=== PATIENT | female | born 1990 | race Caucasian/White ===

== ENCOUNTER 2025-03-22 05:46 | Inpatient (IN) ==
--- NOTE | 2025-03-11 14:34 | Anesthesiology Consultation ---
Date of Service March 11, 2025 Assessment & Plan (1) Encounter for pre-operative examination: Chart Review Chart Review: charge entry initiated - Patient electing for due to dystocia in G4 during -Infectious Disease screening: Per PAT nursing assessment on 03/11/25. No known infectious disease contacts in past 10 days or current infectious disease symptoms. No recent travel outside the country. Cardiology Clinic note 01/26/25= "family history of congenital heart disease; specifically her daughter has Ebstein's anomaly and is s/p multiple surgeries... ECHO for current appears normal with no evidence of Ebstein's anomaly, major congenital heart disease, myocardial dysfunction, rhythm disturbances, pericardial effusion or other acute CV concerns... no contraindications for her to deliver at [facility]... pediatric cardiology can be consulted at any time... no need to follow her in the cardiology clinic at this time.. no need for empiric imaging or pediatric cardiology involvement... History Surgery Operation Date: 03/22/25 07:30 Proposed Procedures p Section (Delivery of Baby Through Abdominal Incision) - Kristie Madrid, Height/Weight Height: 5 ft 6 in Weight: 84.368 kg Allergies Allergy/AdvReac Type Severity Reaction Status Date / Time peanut Allergy Severe Anaphylaxis Verified 03/11/25 13:48 tree nut Allergy Severe Anaphylaxis Verified 03/11/25 13:48 eggplant Allergy Intermediate "mouth Verified 03/11/25 13:48 starts to get itchy" Medications Home Medications Medication Instructions Recorded Confirmed Last Taken aspirin 81 mg tablet,delayed 81 mg PO HS 10/20/24 03/11/25 Unknown release (Adult Low Dose Aspirin) docusate sodium 100 mg tablet 300 mg PO HS 03/11/25 03/11/25 Unknown (Stool Softener) vits no.133-ferrous 1 tab PO HS 03/11/25 03/11/25 Unknown fumarate 28 mg-folic acid 800 mcg tablet () Past Medical History Medical History (Updated 03/11/25 @ 14:27 by Maria Del Rosario Stuart PA-C) Chronic back pain History of anesthesia reaction after last cesearan section 2019--states her BP remained low for 2 days History of blood clots had superficial blood clot in lower extremity after 3rd ---reason for aspirin On anticoagulant therapy aspirin daily TMJ click no device Past Family History Family History Other Diabetes Hypertension No family history of adverse response to anesthesia Past Surgical History Surgical History (Updated 03/11/25 @ 14:33 by Maria Del Rosario Stuart PA-C) History of section with 2nd child (1st was ) 3rd and 4th babies were History of hip surgery right History of wisdom tooth extraction Social History Smoking Status: Never smoker Do You Dip or Chew Tobacco: No Hx Alcohol Use: No Hx Substance Use: No substance use type: does not use
--- NOTE | 2025-03-15 17:55 | History & Physical Report ---
Date of Service March 15, 2025 Assessment & Plan (1) History of section: Plan: Plans for repeat section. Reviewed consent in detail, questions answered. History of Present Illness Primary Care Provider: NO PCP 34yo with plans for repeat section. : 5 Full term: 4 Premature: 0 Total Number of Induced Abortions: 0 Total Number of Spontaneous Abortions: 0 Ectopics: 0 Multiple births: 0 Number of Living Children: 4 and Delivery Plans G1 - G2 - ( cardiac defect) G3 - G4 - , shoulder dystocia H/o x 1 - Opts for repeat c/s this as had dystocia in G4 C/S SCHEDULED FOR 03/22/[address] GOLDEN h/o superficial LE blood clot - Taking ASA - Refer to Hematology per pt request--agreed to just do asa h/o G2 with cardiac defect - echo--normal Allergies Allergy/AdvReac Type Severity Reaction Status Date / Time peanut Allergy Severe Anaphylaxis Verified 03/15/25 16:47 tree nut Allergy Severe Anaphylaxis Verified 03/15/25 16:47 eggplant Allergy Intermediate "mouth Verified 03/15/25 16:47 starts to get itchy" Home Medications Medication Instructions Recorded Confirmed Type aspirin 81 mg tablet,delayed 81 mg PO HS 10/20/24 03/15/25 History release (Adult Low Dose Aspirin) docusate sodium 100 mg tablet 300 mg PO HS 03/11/25 03/15/25 History (Stool Softener) vits no.133-ferrous 1 tab PO HS 03/11/25 03/15/25 History fumarate 28 mg-folic acid 800 mcg tablet () Patient History Medical History (Updated 03/11/25 @ 14:27 by Maria Del Rosario Stuart PA-C) History of anesthesia reaction after last cesearan section 2019--states her BP remained low for 2 days Chronic back pain History of blood clots had superficial blood clot in lower extremity after 3rd ---reason f or aspirin On anticoagulant therapy aspirin daily TMJ click no device Surgical History (Updated 03/11/25 @ 14:33 by Maria Del Rosario Stuart PA-C) History of wisdom tooth extraction History of section with 2nd child (1st was ) 3rd and 4th babies were History of hip surgery right Family History Other Diabetes Hypertension No family history of adverse response to anesthesia Social History (Updated 10/20/24 @ 11:08 by Madelin Barclay) Smoking Status: Never smoker Second Hand Exposure: No; Do You Dip or Chew Tobacco: No; Hx Alcohol Use: No Hx Substance Use: No Preferred Language: [place] Communication Ability: Effective Senior Solutions Architect Required: No Beliefs That Will Affect Care: None marital status: marital status details: Cristi (32) [phone] Current Living Situation: Spouse Current Living Situation Comment: lives with spouse, 4 daughters current occupational status: unemployed Feels Safe at Home: Yes Assistive Devices: None Review of Systems All systems reviewed & are unremarkable except as noted in HPI & below Physical Exam Constitutional: WD/WN, vitals as above Respiratory: normal respiratory effort, lungs clear to auscultation no respiratory distress Cardiovascular: Rate/Rhythm: regular rate and regular rhythm Gastrointestinal (Abdomen): Inspection/Auscultation: abdomen normal to inspection Percussion/Palpation: abdomen soft; abdomen nontender Gravid. No s/s chorio or abruption. Skin: no rashes, warm and dry Psychiatric: A+Ox3, euthymic affect Coding Level of Care Code None Diagnoses History of section Z98.891
[2025-03-22] MEDS ORDERED: SODIUM CHLORIDE 0.9% 100 ML IV PRN (06:22)
[2025-03-22] MEDS: LACTATED RINGER'S 1,000 ML IV SCH ×2 (06:25→09:17)
[2025-03-22] MEDS: ACETAMINOPHEN 500 MG TAB PO SCH (06:25)
[2025-03-22 06:27] LABS: Hematocrit (blood only) 39.7 % (37.0-47.0); Hemoglobin 12.8 g/dl (12.0-16.0); Immature Granulocytes # (auto) 0.33 K/uL (0.01-0.20); Immature Granulocytes % (auto) 3.2 %; Mean Corpuscular Hemoglobin 30.2 pg (25.0-34.0); Mean Corpuscular Volume 93.6 fL (80.0-100.0); Platelet Count 181 K/uL (130-400); RDW Standard Deviation 45.2 fL (36.4-46.3); Red Blood Count 4.24 M/uL (4.20-5.40); White Blood Count 10.46 K/ul (4.8-10.8)
[2025-03-22] MEDS ORDERED: OXYTOCIN 10 UNITS/ML VIAL ONE (06:47)
[2025-03-22] MEDS ORDERED: ONDANSETRON INJ 2 MG/ML 2 ML VIAL ONE (06:47)
[2025-03-22] MEDS ORDERED: DEXAMETHASONE SOD INJ 4 MG/ML VIAL ONE ×2 (06:47→06:56)
[2025-03-22] MEDS ORDERED: MoRPHine SULFATE PF 1 MG/ML 10 ML AMP/VIAL ONE (06:47)
[2025-03-22] MEDS ORDERED: PHENYLEPHRINE HCL 25 MG/250 ML NSS IV ONE (06:47)
[2025-03-22] MEDS ORDERED: LACTATED RINGER'S 1,000 ML IV SCH (07:00)
[2025-03-22] MEDS ORDERED: LACTATED RINGER'S 500 ML IV PRN (07:14)
[2025-03-22] MEDS ORDERED: HYDROmorphone INJ 0.5 MG/0.5 ML SYR IV PRN (07:14)
[2025-03-22] MEDS ORDERED: NALBUPHINE HCL INJ 10 MG/ML AMP IV PRN (07:14)
[2025-03-22] MEDS ORDERED: NALOXONE HCL 0.4 MG/1 ML VIAL/CARP IV PRN (07:14)
[2025-03-22] MEDS ORDERED: ONDANSETRON INJ 2 MG/ML 2 ML VIAL IV PRN (07:14)
[2025-03-22] MEDS ORDERED: diphenhydrAMINE 50 MG/ML VIAL IV PRN (07:14)
[2025-03-22] MEDS ORDERED: NALOXONE HCL 0.08 MG in SYRINGE 1.8 ML IV PRN (07:14)
[2025-03-22] MEDS ORDERED: NALOXONE HCL 1 MG in SODIUM CHLORIDE 0.9% 1,000 ML IV PRN (07:14)
[2025-03-22] MEDS ORDERED: NO NARCOTICS OR SEDATIVES SCH (07:15)
[2025-03-22] MEDS ORDERED: DC INTRASPINAL MORPHINE SCH (07:15)
--- NOTE | 2025-03-22 07:24 | History & Physical Bridge Note ---
Date of Service March 22, 2025 History & Physical Bridge Note I have examined the patient, reviewed the History & Physical and in the interval since the performance of the History & Physical I have noted the following changes of clinical significance: no changes noted
[2025-03-22] MEDS: CITRIC ACID/SODIUM CITRATE 15 ML UDC PO SCH (07:26)
[2025-03-22] MEDS ORDERED: PHENYLEPHRINE 100MCG/ML 5ML SYR ONE (07:54)
[2025-03-22 08:21] LABS: Base Excess Cord Arterial Bld -0.1 mEq/L (-9-1.8); CO2 Cord Arterial Blood 60 mmHg (39.1-73.5); HCO3 Cord Arterial Blood 28 mmol/L (19.7-28.5); Oxygen Sat Cord Arterial Blood < 60.0 % (<60); PO2 Cord Arterial Blood < 20 mmHg (4.1-31.7); pH Cord Arterial Blood 7.28 (7.1-7.38)
[2025-03-22 08:23] LABS: Base Excess Cord Venous Blood -2.3 mEq/L (-7.7-1.9); Cord Venous Blood PO2 33 mmHg (14.1-43.3); O2 Saturation Cord Venous Bld 71.9 % (<68)
--- NOTE | 2025-03-22 08:48 | Operative Report ---
Post Operative Report Pre & Post Diagnosis Operation Date: 03/22/25 07:30 Pre-Op Diagnosis: History of section History of shoulder dystocia Desires repeat section Post-Op Diagnosis: History of section History of shoulder dystocia Desires repeat section I identified the patient and participated in the time-out.: Yes Procedure Operation Date: 03/22/25 07:30 Repeat low transverse section Surgeon Kristie Madrid DO Medical Anthropologist Zeeshan Mckeon MD Quantitative Blood Loss (QBL) 335 Findings Consistent with Post-Op Diagnosis Viable male , Apgars 8/9. Weight 8#4oz. Normal appearing uterus, tubes, ovaries. Specimens placenta, cord blood, cord gas Drains howell clear yellow Anesthesia Type Spinal Complications none Disposition Accompanied Patient To Recovery: Yes Disposition: L&D Indications 34yo @ 39 07/07, h/o x 1, h/o shoulder dystocia, desires repeat section Description of Procedure The patient was seen in her labor and delivery room, risks benefits and alternatives to surgery were reviewed. Informed consent obtained. Questions were answered. She was taken to the operating room, spinal anesthesia was administered. She was then prepared and draped in the usual sterile fashion in the supine position with a leftward tilt. Timeout was confirmed. A Pfannenstiel skin incision was made with a scalpel, and carried through to the underlying layer of fascia. Fascia was nicked at midline, and this incision was extended bilaterally. The superior aspect of the fascial incision was grasped with Master clamps x2, elevated off the underlying rectus abdominis muscles, and dissected sharply and bluntly. In similar fashion, the inferior aspect of the fascial incision was dissected. The rectus abdominis muscles were , and the peritoneum was entered bluntly digitally. This was extended bilaterally. The bladder flap was taken down carefully using Metzenbaum scissors. Using a new scalpel, a low transverse uterine incision was created. Clear amniotic fluid noted. The was delivered from a cephalic presentation. The head delivered, followed by shoulders and body. Spontaneous cry on the field. The cord was doubly clamped and cut, and the infant was handed off to the waiting yard warehouse worker. A segment was retained for cord gases. Cord blood was obtained. The placenta was delivered spontaneously intact. The uterus was exteriorized, and cleared of all clots and debris. The hysterotomy incision was reapproximated using 0 Vicryl in a running locked stitch. A second layer of the same suture was used to imbricate the incision. Posterior uterus was evaluated and normal. The uterus was returned to the abdomen, and gutters were cleared of clots and debris. Excellent hemostasis was observed. The fascial incision was reapproximated using 0 Vicryl in a running stitch. The subcutaneous tissue was irrigated, and reapproximated using 2-0 plain gut in a running stitch. The skin was reapproximated using 4-0 Vicryl in a running subcuticular stitch. Steri-Strips and a bandage were applied. The patient tolerated the procedure well, and will be taken to the recovery area in stable and good condition. I attest to the content of the Intraoperative Record and any orders documented therein. Any exceptions are noted below. OB Procedure Charges 28222
[2025-03-22] MEDS: OXYTOCIN 20 UNITS/LR 1,002 ML IV SCH (08:55)
--- NOTE | 2025-03-22 08:55 | Anesthesiology Progress Note ---
Date of Service March 22, 2025 Anesthesia Post Procedure Vital Signs Vital Signs: Temp Pulse Resp BP Pulse Ox O2 Del Method 03/22/25 08:52 76 92 03/22/25 08:49 76 100/58 L 99 03/22/25 07:07 Room Air 03/22/25 07:01 89 106/70 03/22/25 06:03 18 03/22/25 06:02 83 111/72 03/22/25 05:58 16 03/22/25 05:58 36.8 C 16 Transfer of Care Handoff Completed per policy Notes Mental Status: alert / awake / arousable and participated in evaluation Patient Amnestic to Procedure: Yes Nausea / Vomiting: adequately controlled Pain: adequately controlled Airway Patency, RR, SpO2: stable & adequate BP & HR: stable & adequate Hydration State: stable & adequate Anesthetic Complications: no major complications apparent and Pt Satisfied with anesthetic care
[2025-03-22] MEDS ORDERED: BENZOCAINE 20% SPRY 85 APPLN/85 GM CAN EXT PRN (08:56)
[2025-03-22] MEDS ORDERED: CALCIUM CARBONATE 500 MG CHEWABLE TAB PO PRN (08:56)
[2025-03-22] MEDS ORDERED: SENNA 8.6 MG TAB PO PRN (08:56)
[2025-03-22] MEDS ORDERED: MAGNESIUM HYDROXIDE SUSP 30 ML UDC PO PRN (08:56)
[2025-03-22] MEDS ORDERED: HYDROCORTISONE ACETATE 25 MG SUPP PR PRN (08:56)
[2025-03-22] MEDS ORDERED: PROMETHAZINE 12.5 MG/50.5 ML BAG IV PRN (08:56)
[2025-03-22] MEDS: DIPHTHER/TETAN/PERTUS Vaccine (Tdap, Adol/Adult) 0.5mL IM ONE (09:31)
[2025-03-22] MEDS: OXYTOCIN 20 UNITS/1002ML LR IV ONE (09:53)
[2025-03-22] MEDS: KETOROLAC 30 MG/ML VIAL IV SCH (09:56)
[2025-03-22] MEDS ORDERED: Nursing to Pharmacy Communication SCH (10:30)
[2025-03-22] MEDS: MoRPHine SULFATE 2 MG/ML CARP IV PRN (13:28)
[2025-03-22] MEDS: ACETAMINOPHEN 325 MG TAB PO SCH (21:09)
[2025-03-22] MEDS: SIMETHICONE 80 MG CHEW PO SCH (21:10)
[2025-03-22] MEDS: DOCUSATE SODIUM 100 MG CAP PO SCH (21:10)
[2025-03-23] MEDS ORDERED: diphenhydrAMINE Capsule 25 MG CAP PO PRN (01:14)
[2025-03-23] MEDS ORDERED: HYDROmorphone INJ 0.5 MG/0.5 ML SYR IV PRN (01:14)
[2025-03-23] MEDS ORDERED: diphenhydrAMINE 50 MG/ML VIAL IV PRN (01:14)
[2025-03-23] MEDS ORDERED: ONDANSETRON INJ 2 MG/ML 2 ML VIAL IV PRN (01:14)
--- NOTE | 2025-03-23 05:57 | Obstetrical Progress Note ---
Date of Service March 23, 2025 Assessment & Plan (1) examination following vaginal delivery: Plan 34 y/o POD 1 s/p repeat . Feels well today. Vital signs stable Continue post- care Encourage ambulation and Pain controlled with ibuprofen Hgb stable Anticipate home discharge tomorrow, follow-up with Dr. Madrid is 6 weeks. Admission and Anticipated Discharge Date Admission Date: March 22, 2025 Supervising Physician Co-Signing Physician Notes Resident Physician Supervision Note: I interviewed and examined the patient. Discussed with Dr. Jordan and agree with findings and plan as documented in the note. Any exceptions or clarifications are listed here: Doing well, pod #1. Routine care. Documented By: Luz Lin MD, FACOG Subjective 34 y/o POD 1 s/p repeat . Ambulation: ambulating normally ; some muscle soreness when getting OOB and ambulating Voiding: no voiding problems Passing Gas:: Yes Diet Tolerance:: regular diet Lochia:: Small Feeding Type:: breast Current Pain Level: minimal Resting comfortably this AM in NAD. Denies HALL, CP, SOB, N/V/D, LE pain/swelling. Physical Exam Physical Exam: General: patient resting comfortably, NAD, non-toxic in appearance, AA&O x 4, answers questions appropriately. Skin: warm, dry, intact HEENT: NC/AT, anicteric sclera, conjunctiva without injection, moist mucus membranes. Heart: +S1/S2, regular, no m/r/g Lungs: equal air entry bilaterally, no rales/rhonchi/wheezes Abd: +BS, soft, NT/ND, uterine fundus firm at umbilicus, caesarean incision C/D/I. Ext: warm, no clubbing/cyanosis or edema, SCDs on and running Neuro: nonfocal, patient AA&O x 4, speech intact, no facial droop, moving all extremities on command. Results & Data Vital Signs (Past 12 Hours) Vital Signs Temp Pulse Resp BP BP Pulse Ox O2 Del Method 03/23/25 03:15 36.7 C 78 16 93/58 L 95 Room Air 03/23/25 01:00 16 95 03/23/25 00:00 16 94 03/22/25 23:15 36.7 C 70 16 93/61 L 94 Room Air 03/22/25 23:00 16 94 03/22/25 22:55 18 95 03/22/25 22:20 16 94 03/22/25 21:20 18 03/22/25 20:20 18 96 03/22/25 19:20 16 96 03/22/25 19:20 Room Air 03/22/25 19:20 36.8 C 82 16 105/70 96 Room Air 03/22/25 18:00 16 100
[2025-03-23 06:23] LABS: Hematocrit (blood only) 35.7 % (37.0-47.0); Hemoglobin 11.5 g/dl (12.0-16.0); Immature Granulocytes # (auto) 0.23 K/uL (0.01-0.20); Immature Granulocytes % (auto) 1.8 %; Mean Corpuscular Hemoglobin 29.9 pg (25.0-34.0); Mean Corpuscular Volume 93.0 fL (80.0-100.0); Platelet Count 171 K/uL (130-400); RDW Standard Deviation 45.9 fL (36.4-46.3); Red Blood Count 3.84 M/uL (4.20-5.40); White Blood Count 12.97 K/ul (4.8-10.8)
[2025-03-23] MEDS: IBUPROFEN 600 MG TAB PO SCH (08:44)
[2025-03-23] MEDS: PRENATAL VITAMIN 1 TAB PO SCH (08:46)
[2025-03-23] MEDS: FERROUS SULFATE 325 MG TAB PO SCH (08:46)
[2025-03-23] MEDS ORDERED: KETOROLAC 30 MG/ML VIAL IV PRN (08:52)
[2025-03-23] MEDS: SODIUM CHLORIDE 0.9% 1,000 ML IV SCH (16:46)
[2025-03-23] MEDS: MoRPHine SULFATE PF 1 MG/ML 10 ML AMP/VIAL INT SPINAL ONE (16:46)
[2025-03-23 22:05] VITALS: O2SAT 98
[2025-03-24 06:04] LABS: Hematocrit (blood only) 34.0 % (37.0-47.0); Hemoglobin 11.3 g/dl (12.0-16.0)
--- NOTE | 2025-03-24 06:09 | Obstetrical Progress Note ---
Date of Service March 24, 2025 Assessment & Plan (1) examination following delivery: Plan 34 y/o POD 2 s/p repeat . Feels well today. Vital signs stable Continue post- care Encourage ambulation and Pain controlled with ibuprofen Hgb stable Anticipate home discharge today, follow-up with Dr. Madrid is 6 weeks. Admission and Anticipated Discharge Date Admission Date: March 22, 2025 Supervising Physician Co-Signing Physician Notes Resident Physician Supervision Note: I was present with Dr. Jordan during the history and exam. I discussed the case with the resident and agree with the findings and plan as documented in the note. Any exceptions or clarifications are listed here: doing well, eating, voiding, ambulating, +flatus, pain control good, does not want oxycodone script. cor rrr, lungs ctab, abd soft ff 2 down nt, incision c/d/i with bruising. nt calves. ext nt calves. pod#2 s/p repeat c/s. doing well, and wants to go home. does not want oxycodone script sent. instructions reviewed, f/u 6 wk pp check. Documented By: Awa Culp MD, FACOG Subjective 34 y/o POD 2 s/p repeat . Ambulation: ambulating normally ; some muscle soreness when getting OOB and am bulating Voiding: no voiding problems Passing Gas:: Yes Diet Tolerance:: regular diet Lochia:: Small Feeding Type:: breast Current Pain Level: minimal Resting comfortably this AM in NAD. Denies AHLL, CP, SOB, N/V/D, LE pain/swelling. Physical Exam Physical Exam: General: patient resting comfortably, NAD, non-toxic in appearance, AA&O x 4, answers questions appropriately. Skin: warm, dry, intact HEENT: NC/AT, anicteric sclera, conjunctiva without injection, moist mucus membranes. Abd: soft, NT/ND, uterine fundus firm at umbilicus, caesarean incision C/D/I, bruising around incision and suprapubic region Ext: warm, no clubbing/cyanosis or edema, SCDs on and running Neuro: nonfocal, patient AA&O x 4, speech intact, no facial droop, moving all extremities on command. Results & Data Vital Signs (Past 12 Hours) Vital Signs Temp Pulse Resp BP Pulse Ox O2 Del Method 03/23/25 23:20 36.7 C 68 18 99/68 L 98 Room Air 03/23/25 19:20 36.5 C 74 18 102/69 98 Room Air
[2025-03-24] MEDS: IBUPROFEN 600 MG TAB PO PRN (08:35)
[2025-03-24 09:12] VITALS: BP 94/62; RESP 16; TEMP 97.9
[2025-03-24 13:39] VITALS: PULSE 83
[2025-03-24] MEDS ORDERED: ACETAMINOPHEN 325 MG TAB PO PRN (14:52)
== END 2025-03-24 12:55 | disposition home or self-care (01) | DRG 788 ==
LOC: 4S1 05:46 → EDSTATUS 07:30 → 4E2 11:10